=== PATIENT | male | born 2000 | race Caucasian/White ===

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

== ENCOUNTER 2022-11-29 19:53 | Emergency (ER) | payer MEDICAID ==
[~2022-11-29] VITALS: Ht 180.3 cm; Wt 81.6 kg
[~2022-11-29 19:53] MED LIST: DIPH25CA83 PO; IBUP-1971 PO; PRED20TA PO
[2022-11-29 20:06] VITALS: BP_SYST 127
--- NOTE | 2022-11-29 20:10 | NUR ---
Patient triaged and placed in waiting room. VSS and patient appears in no acute distress at this time. Accompanied by mother, awaiting available bed, and MD Velasco notified of need for MSE.
--- NOTE | 2022-11-29 20:15 | NUR ---
ER Dr.De Moe examining patient.
[2022-11-29] MEDS ORDERED: IBUP-1971 PO (20:21)
[2022-11-29] MEDS ORDERED: LIDO1ADH71 TD (20:21)
[2022-11-29] MEDS ORDERED: CYCL10TA24 PO (20:21)
[2022-11-29] MEDS ORDERED: IBUPROFEN 800 MG TABLET PO ONE (20:30)
[2022-11-29] MEDS ORDERED: CYCLOBENZAPRINE HCL 10 MG TABLET (FLEXERIL) PO ONE (20:30)
--- NOTE | 2022-11-29 20:38 | NUR ---
Pt medicated as ordered; Tolerated well. Pt accompanied by mother and confirmed he will not be driving home.
[2022-11-29 20:41] VITALS: BP_SYST 127
--- NOTE | 2022-11-29 20:42 | NUR ---
Patient given written and verbal discharge instructions and verbalizes understanding. ER MD Velasco discussed with patient the results and treatment provided. Patient in stable condition. ID arm band removed. Rx sent to preferred pharmacy. Patient educated on pain management and to follow up with PMD. Opportunity for questions provided and answered. Medication side effect fact sheet provided.
== END 2022-11-29 20:41 | disposition home or self-care (01) ==
LOC: SED 19:53
DX: S16.1XXA Strain of muscle, fascia and tendon at neck level, initial encounter (principal); Z79.899 Other long term (current) drug therapy; X50.0XXA Overexertion from strenuous movement or load, initial encounter; Y93.89 Activity, other specified; Y92.89 Other specified places as the place of occurrence of the external cause; Y99.8 Other external cause status
CPT/HCPCS: 99283

== ENCOUNTER 2023-12-16 03:13 | Emergency (ER) | payer MEDICAID ==
[~2023-12-16] VITALS: Ht 182.9 cm; Wt 81.6 kg
[~2023-12-16 03:13] MED LIST changes: +CYCL10TA24 PO; +LIDO1ADH71 TD
[2023-12-16 03:27] VITALS: BP_SYST 153; PULSE 80; RESP 16; TEMP 98; O2SAT 98
[2023-12-16] MEDS: EPINEPHRINE HCL/PF 1 MG/ML AMP SUBCUT ONE (03:45)
[2023-12-16] MEDS: methylPREDNISolone SOD SUCC/PF 62.5 MG/ML VIAL IVP ONE (03:46)
[2023-12-16] MEDS: DIPHENHYDRAMINE INJ 50 MG/ML VIAL IVP ONE (03:47)
[2023-12-16] MEDS ORDERED: MED4 PO (04:17)
[2023-12-16 04:41] VITALS: BP_SYST 120; PULSE 60; RESP 16; TEMP 98; O2SAT 97
== END 2023-12-16 04:38 | disposition home or self-care (01) ==
LOC: SED 03:13
DX: T78.40XA Allergy, unspecified, initial encounter (principal); R21 Rash and other nonspecific skin eruption; X58.XXXA Exposure to other specified factors, initial encounter
CPT/HCPCS: 99291; 96374; 96375; 96372; J1200; J0171; J2930

== ENCOUNTER 2024-02-04 18:23 | Emergency (ER) | payer MEDICAID ==
[~2024-02-04] VITALS: Ht 180.3 cm; Wt 80.7 kg
[~2024-02-04 18:23] MED LIST changes: +MED4 PO
[2024-02-04 18:39] VITALS: BP_SYST 135; PULSE 100; RESP 12; TEMP 100.4; O2SAT 97
[2024-02-04] MEDS: DIPHENHYDRAMINE INJ 50 MG/ML VIAL IVP ONE (18:43)
[2024-02-04] MEDS: METHYLPREDNISOLONE SOD SUCC 40 MG/ML VIAL IVP ONE (18:43)
[2024-02-04] MEDS: EPINEPHRINE HCL/PF 1 MG/ML AMP IM ONE (19:04)
[2024-02-04] MEDS: FAMOTIDINE PF 20 MG/2 ML VIAL IVP ONE (19:05)
[2024-02-04] MEDS: ONDANSETRON HCL 4 MG/2 ML VIAL IVP ONE (19:05)
[2024-02-04] MEDS: NACL 0.9% 1,000 ML IV ONE (19:25)
[2024-02-04] MEDS ORDERED: DIPH25CA83 PO (21:03)
[2024-02-04] MEDS ORDERED: PRED20TA PO (21:03)
[2024-02-04] MEDS ORDERED: EPIN0.3P3 IM (21:03)
[2024-02-04 22:30] VITALS: BP_SYST 124; PULSE 66; RESP 13; TEMP 97.8; O2SAT 98
== END 2024-02-04 21:58 | disposition home or self-care (01) ==
LOC: SED 18:23
DX: T78.09XA Anaphylactic reaction due to other food products, initial encounter (principal); T78.49XA Other allergy, initial encounter; Z79.899 Other long term (current) drug therapy; X58.XXXA Exposure to other specified factors, initial encounter
CPT/HCPCS: 99291; 96374; 96375; 96361; 99292; J1200; J3490; J2405; J7030; J1030